=== PATIENT | female | born 1935 | race Caucasian/White ===

== ENCOUNTER 2017-01-14 09:03 | Inpatient (IN) | payer MEDICARE, BC ==
[~2017-01-14] VITALS: Ht 152.4 cm; Wt 86.0 kg
[~2017-01-14 09:03] MED LIST: ALENDRONATE SOD70 M2 PO; ALPRAZOLAM0.25 MG; ANTIVERT25 MG PO; ASPIR 8181 M1 PO; ASPIR 8181 MG; CALCIUM 500 WIT1 TAB; CIPRO250 M2 PO; CLOBETASOL E 0.60 GM TP; CLOBETASOL PROP15 G2 TP; COUMADIN5 MG; DARVOCET-N 1001 TAB; DICLOFENAC SODI75 M2 PO; DIFLUCAN100 M1 PO; FOSAMAX70 MG; K-DUR20 MEQ; KETOCONAZOLE15 GM TP; LASIX40 MG; MAG OX; MAGOX 400400 M1 PO; METAMUCIL FIB1 WAFER; METAMUCIL1042 GM; MIRALAX17 G2 PO; MS CONTIN15 M1 PO; MULTI VITAMIN1 EAC2 PO; MULTIVITAMIN1 TAB; NORVASC5 MG; NORVASC5 MG PO; OXYBUTYNIN CHLOR5 M2 PO; POTASSIUM CHLO20 ME3 PO; TRIAMTERENE-HC1 EAC2 PO; TYLENOL500 MG; VENLAFAXINE H37.5 M3 PO; VITAMIN C250 MG; VITAMIN C250 MG/TAB PO; VITAMIN D2000 UNIT PO; VOLTAREN75 MG; XANAX0.25 MG PO; ZANTAC150 M1 PO; ZAROXOLYN2.5 MG; ZETIA10 MG; ZETIA10 MG PO
[2017-01-15] MEDS ORDERED: ASPIRIN325 M3 PO (12:48)
== END 2017-01-15 13:50 | DRG 465 ==
LOC: SHSC 09:03 → CARE 11:00 → ORE 12:53 → PACU 14:03 → 5EB 15:05
PROVIDERS: ADMIT Orthopaedic Surgery
PROC: 0SPV0JZ Removal of Synthetic Substitute from Right Knee Joint, Tibial Surface, Open Approach (ICD-10-PCS; principal; 2017-01-14)
DX: T84.032A Mechanical loosening of internal right knee prosthetic joint, initial encounter (principal); I50.9 Heart failure, unspecified; I10 Essential (primary) hypertension; M25.569 Pain in unspecified knee; M19.90 Unspecified osteoarthritis, unspecified site; M81.8 Other osteoporosis without current pathological fracture; T50.905A Adverse effect of unspecified drugs, medicaments and biological substances, initial encounter; E78.5 Hyperlipidemia, unspecified; Z82.49 Family history of ischemic heart disease and other diseases of the circulatory system; Z80.9 Family history of malignant neoplasm, unspecified; Z79.82 Long term (current) use of aspirin; Z79.899 Other long term (current) drug therapy
CPT/HCPCS: G8978-GP-CJ; G8979-GP-CJ; G8980-GP-CJ; J0171; J1885; J2270; J2795